=== PATIENT | female | born 1950 | race Caucasian/White ===

== ENCOUNTER 2018-12-16 19:07 | Emergency (ER) | payer MEDICARE, BC ==
[2018-12-16 19:22] VITALS: BP 141/66; PULSE 94
--- NOTE | 2018-12-16 19:53 | EDM.PDOC ---
ED HPI GENERAL MEDICAL PROBLEM - General Chief Complaint: Headache Stated Complaint: PAIN BEHIND RIGHT EAR Time Seen by Provider: 12/16/18 19:53 - History of Present Illness INITIAL COMMENTS - FREE TEXT/NARRATIVE: 68-year-old female presents emergency room with pain behind her right ear. Patient has had multiple episodes of pain just like this over the last 30 years or so it'll go years without bothering her that it comes back it's a sharp stabbing pain behind her right ear. She's been told in the past she has a irritated nerve ending. Patient denies any fevers or chills no nausea no vomiting. The patient does not have a headache she just has this brief stabbing pain. The pain is at the insertion of the neck muscles into the base of the skull. Right Head Pain Score (Numeric/FACES): 10 - Related Data Allergies Allergy/AdvReac Type Severity Reaction Status Date / Time erythromycin base AdvReac Nausea and Verified 12/16/18 19:22 Vomiting Home Meds: Home Meds Budesonide/Formoterol [Symbicort 160-4.5 MCG] 2 puff INH BID 06/07/14 [History] Estrogens, Conjugated [Premarin] 0.625 mg PO DAILY 06/07/14 [History] Montelukast Sodium [Singulair] 10 mg PO DAILY 06/07/14 [History] Triamterene/Hydrochlorothiazid [Triamterene-HCTZ 37.5-25 MG] 1 each PO DAILY 05/23 [History] Albuterol [Ventolin HFA] 2 puff IH Q3H 08/13/14 [History] Aspirin 81 mg PO DAILY 12/16/18 [History] Fexofenadine/Pseudoephedrine [Renay-D 12 Hour Tablet] 1 each PO DAILY [History] Hydrocodone/Acetaminophen [[place] 5-325 Tablet] 1 each PO Q6H PRN #8 tablet 12/16 [Rx] Losartan [Cozaar] 25 mg PO DAILY 12/16/18 [History] Tiotropium [place] [Spiriva Respimat] 2.5 gm IH DAILY 12/16/18 [History] Past Medical History - Past Health History Medical/Surgical History: Denies Medical/Surgical History HEENT History: Reports: Impaired Vision Cardiovascular History: Reports: Hypertension Respiratory History: Reports: COPD [employer] History: Reports: Musculoskeletal History: Reports: None Neurological History: Reports: None Psychiatric History: Reports: None Endocrine/Metabolic History: Reports: None Hematologic History: Reports: None Immunologic History: Reports: None Oncologic (Cancer) History: Reports: None Dermatologic History: Reports: None - Infectious Disease History Infectious Disease History: Reports: None - Past Surgical History Head Surgeries/Procedures: Reports: None GI Surgical History: Reports: Cholecystectomy Other GI Surgeries/Procedures: Colon Surgery Female Surgical History: Reports: Hysterectomy, Tubal Ligation Social & Family History - Tobacco Use Smoking Status *Q: Never Smoker - Caffeine Use Caffeine Use: Reports: None - Recreational Drug Use Recreational Drug Use: No ED ROS GENERAL - Review of Systems Review Of Systems: See Below Constitutional: Reports: No Symptoms HEENT: Reports: No Symptoms Respiratory: Reports: No Symptoms Cardiovascular: Reports: No Symptoms GI/Abdominal: Reports: No Symptoms : Reports: No Symptoms Musculoskeletal: Reports: No Symptoms. Denies: Neck Pain Skin: Reports: No Symptoms Neurological: Denies: Headache (No headache just this pain over this pin-sized area at the insertion of the muscles at the base the skull) - Physical Exam Exam: See Below Exam Limited By: No Limitations General Appearance: Alert, No Apparent Distress Eye Exam: Bilateral Eye: EOMI, Normal Inspection, PERRL Ears: Normal External Exam, Normal Canal, Hearing Grossly Normal, Normal TMs Nose: Normal Inspection, Normal Mucosa, No Blood Throat/Mouth: Normal Inspection, Normal Lips, Normal Teeth, Normal Gums, Normal Oropharynx, Normal Voice, No Airway Compromise Head Exam: Atraumatic, Normocephalic Neck: Normal Inspection, Supple, Non-Tender, Full Range of Motion, Other (At the insertion of the paraspinous muscles in the base the skull only on the right side she has 1 pinpoint area that triggers her pain this is 3 cm lateral to midline right at the edge of the palpable skull. When you touch it she flinches.). No: Lymphadenopathy (L), Lymphadenopathy (R) Respiratory/Chest: No Respiratory Distress, Lungs Clear, Normal Breath Sounds Cardiovascular: Normal Peripheral Pulses, Regular Rate, Rhythm, No Edema Course - Vital Signs Last Recorded V/S: Last Vital Signs Temp 36.4 C 12/16/18 19:20 Pulse 94 09/10/19 19:20 Resp 18 12/16/18 19:20 BP 141/66 H 12/16/18 19:20 Pulse Ox 94 L 12/16/18 19:20 - Re-Assessments/Exams Free Text/Narrative Re-Assessment/Exam: 12/16/18 20:10 Consider trigger point injections to the area but no should the patient would hold still long enough for this. We'll try a few pain pills so she can get some rest. Departure - Departure Time of Disposition: 20:11 Disposition: Home, Self-Care 01 Clinical Impression: Neuroma - Discharge Information Prescriptions: Hydrocodone/Acetaminophen [[place] 5-325 Tablet] 1 each PO Q6H PRN #8 tablet PRN Reason: Pain Referrals: Calista Zamudio MD [Primary Care Provider] - Forms: ED Department Discharge Additional Instructions: Return to the emergency room with any questions problems or worsening symptoms. Follow-up with your regular provider early next week if needed. Take the medications as directed
== END 2018-12-16 20:20 | disposition home or self-care (01) ==
LOC: JD.ED 19:07
DX: D36.10 Benign neoplasm of peripheral nerves and autonomic nervous system, unspecified (principal); I10 Essential (primary) hypertension; J44.9 Chronic obstructive pulmonary disease, unspecified; Z88.1 Allergy status to other antibiotic agents; Z79.82 Long term (current) use of aspirin; Z79.899 Other long term (current) drug therapy
CPT/HCPCS: 99283

== ENCOUNTER 2022-08-06 20:01 | Emergency (ER) | payer BC, MEDICARE, OTHER ==
[2022-08-06] MEDS ORDERED: HYDROmorphone 1 MG/ML Syringe IM ONE (21:33)
[2022-08-06] MEDS ORDERED: Albuterol/Ipratropium 3.0-0.5 MG/3 ML Neb Soln NEB ONE (22:25)
[2022-08-07 00:04] VITALS: BP 155/89; PULSE 78
== END 2022-08-06 23:45 | disposition home or self-care (01) ==
LOC: JD.ED 20:01
DX: R51.9 Headache, unspecified (principal); I10 Essential (primary) hypertension; J44.9 Chronic obstructive pulmonary disease, unspecified; Z88.1 Allergy status to other antibiotic agents; Z79.82 Long term (current) use of aspirin; Z79.899 Other long term (current) drug therapy
CPT/HCPCS: 70450; 94640; 96372; 99284; J1170; 99283; J7620-GY

== ENCOUNTER 2023-02-17 01:14 | Emergency (ER) | payer MEDICARE, OTHER ==
[2023-02-17] MEDS ORDERED: Albuterol/Ipratropium 3.0-0.5 MG/3 ML Neb Soln ONE (01:20)
[2023-02-17] MEDS ORDERED: methylPREDNISolone Sodium Succinate 125 MG/2 ML SDV IVPUSH ONE (01:26)
[2023-02-17] MEDS ORDERED: Albuterol/Ipratropium 3.0-0.5 MG/3 ML Neb Soln NEB ONE (01:26)
[2023-02-17] MEDS ORDERED: methylPREDNISolone Sodium Succinate 125 MG/2 ML SDV ONE (01:28)
[2023-02-17 01:45] LABS: BASOPHILS ABSOLUTE AUTO 0.1 K/mm3 (0.0-0.2); BASOPHILS PERCENT AUTO 0.2 % (0.0-1.0); EOSINOPHILS ABSOLUTE AUTO 0.6 K/mm3 (0.0-0.4); EOSINOPHILS PERCENT AUTO 2.3 % (0.0-6.0); HEMATOCRIT 39.3 % (37.0-47.0); HEMOGLOBIN 12.3 gm/dl (12.0-16.0); IMMATURE GRAN ABSOLUTE AUTO 0.27 K/mm3 (0.00-0.05); LYMPHOCYTES ABSOLUTE AUTO 3.6 K/mm3 (1.0-4.8); LYMPHOCYTES PERCENT AUTO 12.7 % (24.0-44.0); MEAN CORPUSCULAR HEMOGLOBIN 19.9 pg (28.0-32.0); MEAN CORPUSCULAR HGB CONC 31.3 g/dl (32.0-36.0); MEAN CORPUSCULAR VOLUME 63.6 fl (83.0-99.0); MEAN PLATELET VOLUME 10.6 fl (9.4-12.3); MONOCYTES ABSOLUTE AUTO 1.5 K/mm3 (0.0-0.8); MONOCYTES PERCENT AUTO 5.2 % (0.0-8.0); NEUTROPHILS ABSOLUTE AUTO 22.4 K/mm3 (1.8-7.7); NEUTROPHILS PERCENT AUTO 78.6 % (41.0-71.0); NRBC ABSOLUTE 0.02 (0.00-0.02); NRBC PERCENT 0.1 % (0.0-0.2); PLATELET COUNT,PLT 504 K/mm3 (150-400); RED BLOOD CELL COUNT 6.18 M/mm3 (4.10-5.30)
[2023-02-17] MEDS ORDERED: Albuterol 0.083% 2.5 MG/3 ML Neb Soln ONE (01:46)
[2023-02-17] MEDS ORDERED: Albuterol 0.5% 2.5 MG/0.5 ML Neb Soln NEB PRN (01:56)
[2023-02-17 02:04] LABS: INR 0.96; PROTHROMBIN TIME 10.3 SECONDS (9.7-12.0)
[2023-02-17] MEDS ORDERED: Succinylcholine 200 MG/10 ML MDV IVPUSH ONE (02:09)
[2023-02-17 02:10] LABS: BASE EXCESS ARTERIAL -3.2 (-2-2.0); BICARBONATE,ARTERIAL 30.1 meq/L (22.0-26.0); O2 SATURATION ARTERIAL 96.8 % (96.0-97.0); PCO2 ARTERIAL 107.8 mmHg (35.0-45.0)
[2023-02-17] MEDS ORDERED: propofoL 100 ML ONE (02:11)
[2023-02-17 02:14] LABS: ALBUMIN 3.7 g/dl (3.4-5.0); ANION GAP 14.8 (5-15); BILIRUBIN TOTAL 1.5 mg/dL (0.2-1.0); CALCIUM 8.6 mg/dL (8.5-10.1); CREATININE 0.8 mg/dL (0.55-1.02); EST CRCL DRUG DOSING (CG) 51.03 mL/min; POTASSIUM,K 3.8 mEq/L (3.5-5.1); PROTEIN TOTAL,TP 7.4 g/dl (6.4-8.2)
[2023-02-17 02:21] LABS: LACTIC ACID 0.7 mmol/L (0.4-2.0)
[2023-02-17 02:22] LABS: SLIDE REVIEW ABNORMAL SMEAR
[2023-02-17] MEDS: propofoL 100 ML IV SCH ×2 (02:27→06:48)
[2023-02-17] MEDS ORDERED: cefTRIAXone 2 GM in Sodium Chloride 0.9% 100 ML IV ONE (02:42)
[2023-02-17 03:09] LABS: APPEARANCE,URINE SLT CLOUDY (Clear); BILIRUBIN,URINE 1+ (Negative); COLOR,URINE DARK YELLOW (Yellow); GLUCOSE,URINE NEGATIVE (Negative); KETONES,URINE 1+ (Negative); LEUKOCYTE ESTERASE,URINE NEGATIVE (Negative); NITRITE,URINE NEGATIVE (Negative); OCCULT BLOOD,URINE 1+ (Negative); PH,URINE 5.5 (5.0-8.0); PROTEIN,URINE 3+ (Negative); UROBILINOGEN,URINE 0.2 (0.2-1.0)
[2023-02-17 03:22] LABS: RBC,URINE 0-5 /hpf (0-5); SQUAMOUS EPITHELIAL CELLS,UR 0-5 /hpf (0-5); WBC,URINE 0-5 /hpf (0-5)
[2023-02-17 03:23] LABS: BACTERIA,URINE MODERATE /hpf (FEW); HYALINE CASTS,URINE 0-5 /lpf (0-5); MUCUS,URINE RARE /hpf (FEW)
[2023-02-17] MEDS ORDERED: Heparin Sodium 5,000 Units/ML Vial IVPUSH ONE (03:27)
[2023-02-17] MEDS ORDERED: Heparin Sodium/D5W 25,000 UNITS/500 ML BAG IV SCH (03:30)
[2023-02-17 03:47] LABS: BASE EXCESS ARTERIAL -1.4 (-2-2.0); O2 SATURATION ARTERIAL 92.9 % (96.0-97.0); PCO2 ARTERIAL 59.3 mmHg (35.0-45.0)
[2023-02-17] MEDS ORDERED: fentaNYL 100 MCG/2 ML SDV IVPUSH ONE ×2 (04:07→06:47)
[2023-02-17] MEDS ORDERED: Ketamine 200 MG/20 ML MDV IVPUSH ONE (04:09)
[2023-02-17 04:13] LABS: INFLUENZA A NAA NEGATIVE (NEGATIVE); RESPIRATORY SYNCYTIAL VIR NAA NEGATIVE (NEGATIVE)
[2023-02-17 04:28] LABS: CORONAVIRUS COVID-19 NAA POSITIVE (NEGATIVE)
[2023-02-17] MEDS ORDERED: Norepinephrine 4 MG in Dextrose 5% in Water 246 ML IV SCH ×2 (04:45)
[2023-02-17 04:55] LABS: BASE EXCESS ARTERIAL -0.1 (-2-2.0); O2 SATURATION ARTERIAL 95.2 % (96.0-97.0); PCO2 ARTERIAL 51.6 mmHg (35.0-45.0)
[2023-02-17] MEDS ORDERED: Sodium Chloride 0.9% 500 ML IV ONE (05:27)
[2023-02-17] MEDS ORDERED: Sodium Chloride 0.9% 1,000 ML IV SCH (05:30)
[2023-02-17 06:29] VITALS: BP 107/78; PULSE 87
== END 2023-02-17 07:19 ==
LOC: JD.ED 01:14
DX: I25.9 Chronic ischemic heart disease, unspecified (principal); J96.90 Respiratory failure, unspecified, unspecified whether with hypoxia or hypercapnia; U07.1 COVID-19; I10 Essential (primary) hypertension; J44.9 Chronic obstructive pulmonary disease, unspecified; Z79.899 Other long term (current) drug therapy; Z88.1 Allergy status to other antibiotic agents; Z79.82 Long term (current) use of aspirin
CPT/HCPCS: 0241U; 31500; 36415; 36600; 43752; 51702; 71045; 80053; 81001; 82803; 83605; 83880; 84484; 85025; 85610; 85730; 87040; 93005; 94640; 96365; 96366; 96367; 96368; 96375; 96376; 99285; J0330; J0696; J1644; J2704; J2930; J3010; J3490; J7030; J7060; 93010; J7620-GY

== ENCOUNTER 2023-05-30 10:11 | Day surgery (SDC) | payer MEDICARE, OTHER ==
[2023-05-30] MEDS: Polymyxin B/Trimethoprim 10 ML Bottle EYERT SCH (11:05)
[2023-05-30] MEDS: Brimonidine 0.2% Ophth Soln 5 ML Bottle EYERT SCH (11:10)
[2023-05-30] MEDS: Phenylephrine 2.5% Ophth Soln 2 ML Bot EYERT SCH (11:15)
[2023-05-30] MEDS: Tropicamide 1% Ophth Soln 3 ML Bottle EYERT SCH (11:20)
[2023-05-30] MEDS: Proparacaine 0.5% Ophth Soln 15 ML Bottle EYEBOTH SCH (12:03)
[2023-05-30] MEDS: Lidocaine 1% PF 2 ML SDV INJECT SCH (12:22)
[2023-05-30] MEDS: Pilocarpine 4% Ophth Soln 15 ML Bot EYERT SCH (12:22)
[2023-05-30] MEDS: Cefuroxime 10 MG/ML SYRINGE EYERT SCH (12:34)
[2023-05-30 12:49] VITALS: BP 138/73; PULSE 60
== END 2023-05-30 12:43 | disposition home or self-care (01) ==
LOC: JD.SDS 10:11
PROVIDERS: ATTEND Ophthalmology
DX: H25.813 Combined forms of age-related cataract, bilateral (principal); H16.103 Unspecified superficial keratitis, bilateral; H16.223 Keratoconjunctivitis sicca, not specified as Sjogren's, bilateral; H53.022 Refractive amblyopia, left eye; H02.831 Dermatochalasis of right upper eyelid; H02.834 Dermatochalasis of left upper eyelid; I10 Essential (primary) hypertension; J44.9 Chronic obstructive pulmonary disease, unspecified; E78.2 Mixed hyperlipidemia; Z79.899 Other long term (current) drug therapy; Z91.040 Latex allergy status
CPT/HCPCS: A9270-GY; J0697; J3490

== ENCOUNTER 2023-06-27 11:06 | Day surgery (SDC) | payer MEDICARE, OTHER ==
[2023-06-27] MEDS: Polymyxin B/Trimethoprim 10 ML Bottle EYELF SCH (11:47)
[2023-06-27] MEDS: Brimonidine 0.2% Ophth Soln 5 ML Bottle EYELF SCH (11:51)
[2023-06-27] MEDS: Phenylephrine 2.5% Ophth Soln 2 ML Bot EYELF SCH (12:06)
[2023-06-27] MEDS: Tropicamide 1% Ophth Soln 3 ML Bottle EYELF SCH (12:10)
[2023-06-27] MEDS: Tetracaine HCl/PF 0.5% 4 ML Bottle EYEBOTH SCH (13:07)
[2023-06-27] MEDS: Lidocaine 1% PF 2 ML SDV INJECT SCH (13:47)
[2023-06-27] MEDS: Cefuroxime 10 MG/ML SYRINGE EYELF SCH (13:59)
[2023-06-27] MEDS: Pilocarpine 4% Ophth Soln 15 ML Bot EYELF SCH (14:00)
[2023-06-27 14:14] VITALS: BP 134/80; PULSE 78
== END 2023-06-27 14:10 | disposition home or self-care (01) ==
LOC: JD.SDS 11:06
PROVIDERS: ATTEND Ophthalmology
DX: H25.812 Combined forms of age-related cataract, left eye (principal); H53.022 Refractive amblyopia, left eye; H11.823 Conjunctivochalasis, bilateral; H02.831 Dermatochalasis of right upper eyelid; H02.834 Dermatochalasis of left upper eyelid; I10 Essential (primary) hypertension; J44.9 Chronic obstructive pulmonary disease, unspecified; E78.2 Mixed hyperlipidemia; Z96.1 Presence of intraocular lens; Z79.899 Other long term (current) drug therapy
CPT/HCPCS: A9270-GY; J0697; J3490

== ENCOUNTER 2023-12-04 10:04 | Inpatient (IN) | payer MEDICARE, OTHER ==
[2023-12-04] MEDS: Sodium Chloride 0.9% 45 ML IV SCH (10:31)
[2023-12-04] MEDS: Iopamidol 755 Mg/ML 100 ML Bottle IVPUSH ONE (10:31)
[2023-12-04] MEDS: Sodium Chloride 0.9% 10 ML Syringe FLUSH PRN ×2 (10:31→12:42)
[2023-12-04] MEDS: Albuterol/Ipratropium 3.0-0.5 MG/3 ML Neb Soln NEB ONE (10:55)
[2023-12-04] MEDS: methylPREDNISolone Sodium Succinate 125 MG/2 ML SDV IVPUSH ONE (10:57)
[2023-12-04] MEDS: HYDROmorphone 0.5 MG/0.5 ML Syringe IVPUSH ONE ×2 (10:57→11:41)
[2023-12-04 11:45] LABS: BASOPHILS ABSOLUTE AUTO 0.1 K/mm3 (0.0-0.2); BASOPHILS PERCENT AUTO 0.2 % (0.0-1.0); HEMATOCRIT 37.8 % (37.0-47.0); HEMOGLOBIN 12.1 gm/dl (12.0-16.0); IMMATURE GRAN ABSOLUTE AUTO 0.46 K/mm3 (0.00-0.05); IMMATURE GRAN PERCENT AUTO 1.4 % (0.0-0.4); LYMPHOCYTES ABSOLUTE AUTO 1.8 K/mm3 (1.0-4.8); LYMPHOCYTES PERCENT AUTO 5.6 % (24.0-44.0); MEAN CORPUSCULAR HEMOGLOBIN 19.9 pg (28.0-32.0); MEAN CORPUSCULAR VOLUME 62.3 fl (83.0-99.0); MONOCYTES ABSOLUTE AUTO 1.8 K/mm3 (0.0-0.8); MONOCYTES PERCENT AUTO 5.7 % (0.0-8.0); NEUTROPHILS ABSOLUTE AUTO 27.6 K/mm3 (1.8-7.7); NEUTROPHILS PERCENT AUTO 87.1 % (41.0-71.0); PLATELET COUNT,PLT 352 K/mm3 (150-400); RED BLOOD CELL COUNT 6.07 M/mm3 (4.10-5.30); WHITE BLOOD CELL COUNT,WBC 31.75 K/mm3 (3.9-11.3)
[2023-12-04 11:56] LABS: INR 1.24
[2023-12-04 11:57] LABS: PTT,PARTIAL THROMBOPLSTIN TIME 27.4 SECONDS (21.7-31.4)
[2023-12-04 12:25] LABS: A/G RATIO 0.7 (1-2); ALBUMIN 2.6 g/dl (3.4-5.0); ANION GAP 16.7 (5-15); BILIRUBIN TOTAL 1.9 mg/dL (0.2-1.0); CALCIUM 8.5 mg/dL (8.5-10.1); EST CRCL DRUG DOSING (CG) 45.5 mL/min; POTASSIUM,K 3.7 mEq/L (3.5-5.1); PROTEIN TOTAL,TP 6.5 g/dl (6.4-8.2)
[2023-12-04] MEDS: cefTRIAXone 2 GM in Sodium Chloride 0.9% 100 ML IV ONE (12:41)
[2023-12-04 13:00] LABS: CORONAVIRUS COVID-19 NAA NEGATIVE (NEGATIVE); INFLUENZA A NAA NEGATIVE (NEGATIVE); RESPIRATORY SYNCYTIAL VIR NAA NEGATIVE (NEGATIVE)
[2023-12-04 13:04] LABS: SLIDE REVIEW ABNORMAL SMEAR
[2023-12-04 13:10] LABS: LACTIC ACID 0.9 mmol/L (0.4-2.0)
[2023-12-04 13:19] LABS: APPEARANCE,URINE CLEAR (Clear); BILIRUBIN,URINE 1+ (Negative); COLOR,URINE DARK YELLOW (Yellow); GLUCOSE,URINE NEGATIVE (Negative); KETONES,URINE NEGATIVE (Negative); LEUKOCYTE ESTERASE,URINE NEGATIVE (Negative); NITRITE,URINE NEGATIVE (Negative); OCCULT BLOOD,URINE NEGATIVE (Negative); PH,URINE 5.5 (5.0-8.0); PROTEIN,URINE 1+ (Negative)
[2023-12-04 13:53] LABS: BACTERIA,URINE FEW /hpf (FEW); MUCUS,URINE FEW /hpf (FEW); RBC,URINE 0-5 /hpf (0-5); SQUAMOUS EPITHELIAL CELLS,UR 0-5 /hpf (0-5); WBC CASTS,URINE 0-5 /lpf (0-5); WBC,URINE 0-5 /hpf (0-5)
[2023-12-04 13:54] LABS: FINE GRANULAR CASTS,URINE 0-5 /lpf (0-5); HYALINE CASTS,URINE 0-5 /lpf (0-5)
[2023-12-04] MEDS: oxyCODONE 5 MG Tab PO ONE (14:10)
[2023-12-04] MEDS ORDERED: Ondansetron 4 MG/2 ML SDV IV PRN (17:00)
[2023-12-04] MEDS ORDERED: Morphine 2 MG/ML SYRINGE IVPUSH PRN (17:00)
[2023-12-04] MEDS ORDERED: Sennosides/Docusate Sodium 50-8.6 MG Tab PO PRN (17:00)
[2023-12-04] MEDS ORDERED: Melatonin 3 MG Tab PO PRN (17:00)
[2023-12-04] MEDS: Potassium Chloride 20 MEQ Tab.ER PO ONE (17:29)
[2023-12-04] MEDS ORDERED: Albuterol 0.083% 2.5 MG/3 ML Neb Soln INH PRN (17:30)
[2023-12-04] MEDS: Lactated Ringers 500 ML IV ONE (17:30)
[2023-12-04] MEDS ORDERED: Albuterol 6.7 GM Inhaler INH SCH (17:30)
[2023-12-04] MEDS ORDERED: Non-Formulary Medication 1 Each (Alendronate [Fosamax] 70 MG/75 ML Bottle) PO SCH (17:30)
[2023-12-04] MEDS ORDERED: Non-Formulary Medication 1 Each (Fluticasone/Umeclidin/Vilanter [Trelegy Ellipta 200-62.5- INH SCH (17:30)
[2023-12-04] MEDS ORDERED: Non-Formulary Medication 1 Each (Olopatadine 2.5 ML Bottle) EYEBOTH SCH (17:45)
[2023-12-04] MEDS: Rosuvastatin 10 MG Tab PO SCH (17:48)
[2023-12-04] MEDS: Cholecalciferol (Vitamin D3) 25 MCG Tab PO SCH (17:49)
[2023-12-04] MEDS: Calcium Carbonate 600 MG Tab PO SCH (17:49)
[2023-12-04] MEDS: Losartan 50 MG Tab PO SCH (17:51)
[2023-12-04] MEDS: Furosemide 20 MG Tab PO SCH (17:53)
[2023-12-04] MEDS: Aspirin 81 MG Tab.EC PO SCH (17:53)
[2023-12-04 18:03] LABS: FOLIC ACID 15.5 ng/mL (8.6-58.9)
[2023-12-04 18:26] LABS: TSH 1.445 uIU/mL (0.358-3.74)
[2023-12-04] MEDS: Albuterol/Ipratropium 3.0-0.5 MG/3 ML Neb Soln NEB SCH (18:28)
[2023-12-04 18:40] LABS: IRON,FE 10 ug/dL (50-170); PERCENT FE SATURATION 6 % (20-55); TRANSFERRIN 124 mg/dL (202-364)
[2023-12-04 18:41] LABS: TOTAL IRON BINDING CAPACITY 155 ug/dL (100-400)
[2023-12-04] MEDS: Doxycycline 100 MG in Sodium Chloride 0.9% 100 ML IV SCH (21:06)
[2023-12-04] MEDS: rOPINIRole 0.25 MG Tab PO SCH (21:06)
[2023-12-05 07:52] LABS: BASOPHILS ABSOLUTE AUTO 0.1 K/mm3 (0.0-0.2); BASOPHILS PERCENT AUTO 0.4 % (0.0-1.0); EOSINOPHILS PERCENT AUTO 0.1 % (0.0-6.0); HEMATOCRIT 32.7 % (37.0-47.0); IMMATURE GRAN ABSOLUTE AUTO 1.41 K/mm3 (0.00-0.05); LYMPHOCYTES ABSOLUTE AUTO 0.9 K/mm3 (1.0-4.8); LYMPHOCYTES PERCENT AUTO 2.6 % (24.0-44.0); MEAN CORPUSCULAR HEMOGLOBIN 19.5 pg (28.0-32.0); MEAN CORPUSCULAR HGB CONC 31.8 g/dl (32.0-36.0); MEAN CORPUSCULAR VOLUME 61.5 fl (83.0-99.0); MEAN PLATELET VOLUME 10.3 fl (9.4-12.3); MONOCYTES ABSOLUTE AUTO 1.4 K/mm3 (0.0-0.8); MONOCYTES PERCENT AUTO 3.9 % (0.0-8.0); NEUTROPHILS ABSOLUTE AUTO 31.1 K/mm3 (1.8-7.7); PLATELET COUNT,PLT 401 K/mm3 (150-400); RED BLOOD CELL COUNT 5.32 M/mm3 (4.10-5.30); WHITE BLOOD CELL COUNT,WBC 34.96 K/mm3 (3.9-11.3)
[2023-12-05 07:56] LABS: HEMOGLOBIN 10.4 gm/dl (12.0-16.0)
[2023-12-05 08:21] LABS: ANION GAP 13.2 (5-15); BLOOD UREA NITROGEN,BUN 24 mg/dL (7-18); CARBON DIOXIDE,CO2 26 mEq/L (21-32); CHLORIDE,CL 99 mEq/L (98-107); CREATININE 1.1 mg/dL (0.55-1.02); GLUCOSE RANDOM 186 mg/dL (70-99); POTASSIUM,K 4.2 mEq/L (3.5-5.1); SODIUM,NA 134 mEq/L (136-145)
[2023-12-05 08:22] LABS: A/G RATIO 0.6 (1-2); ALANINE AMINOTRANSFERASE,ALT 29 U/L (14-59); ALBUMIN 2.4 g/dl (3.4-5.0); ALKALINE PHOSPHATASE 105 U/L (46-116); ASPARTATE AMNIOTRANSFERASE,AST 21 U/L (15-37); BILIRUBIN TOTAL 0.8 mg/dL (0.2-1.0); BUN/CREATININE RATIO 21.8 (14-18); CALCIUM 8.8 mg/dL (8.5-10.1); EST CRCL DRUG DOSING (CG) 41.37 mL/min; ESTIMATED GFR 52 mL/min (>60); MAGNESIUM 1.9 mg/dL (1.8-2.4); PHOSPHORUS 1.9 mg/dL (2.6-4.7); PROTEIN TOTAL,TP 6.6 g/dl (6.4-8.2)
[2023-12-05 08:23] LABS: C-REACTIVE PROTEIN > 25.00 mg/dL (<0.30)
[2023-12-05] MEDS: Enoxaparin 40 MG/0.4 ML Syringe SUBCUT SCH (08:41)
[2023-12-05 09:49] LABS: SLIDE REVIEW ABNORMAL SMEAR
[2023-12-05] MEDS: Non-Formulary Medication 1 Each (Ubidecarenone [Coenzyme Q10] 10 MG Capsule) PO SCH (10:58)
[2023-12-05] MEDS: Sodium Ferric Gluconate Cmplex 250 MG in Sodium Chloride 0.9% 100 ML IV SCH (11:47)
[2023-12-05] MEDS ORDERED: Sodium Phosphate 30 MMOLE in Sodium Chloride 0.9% 250 ML IV ONE (12:00)
[2023-12-05] MEDS: Sodium Phosphate 30 MMOLE in Sodium Chloride 0.9% 250 ML IV ONE (14:15)
[2023-12-05] MEDS: cefTRIAXone 1 GM in Sodium Chloride 0.9% 100 ML IV SCH (17:22)
[2023-12-06] MEDS: Losartan 25 MG Tab PO SCH (09:58)
[2023-12-06] MEDS: Doxycycline Monohydrate 100 MG Cap PO SCH (09:58)
[2023-12-06 10:37] LABS: BASOPHILS PERCENT AUTO 0.1 % (0.0-1.0); EOSINOPHILS PERCENT AUTO 0.1 % (0.0-6.0); HEMATOCRIT 29.3 % (37.0-47.0); HEMOGLOBIN 9.4 gm/dl (12.0-16.0); IMMATURE GRAN ABSOLUTE AUTO 0.55 K/mm3 (0.00-0.05); IMMATURE GRAN PERCENT AUTO 2.8 % (0.0-0.4); LYMPHOCYTES PERCENT AUTO 5.3 % (24.0-44.0); MEAN CORPUSCULAR HEMOGLOBIN 19.8 pg (28.0-32.0); MEAN CORPUSCULAR HGB CONC 32.1 g/dl (32.0-36.0); MEAN CORPUSCULAR VOLUME 61.7 fl (83.0-99.0); MEAN PLATELET VOLUME 9.6 fl (9.4-12.3); MONOCYTES PERCENT AUTO 4.9 % (0.0-8.0); NEUTROPHILS ABSOLUTE AUTO 16.9 K/mm3 (1.8-7.7); NEUTROPHILS PERCENT AUTO 86.8 % (41.0-71.0); PLATELET COUNT,PLT 416 K/mm3 (150-400); RED BLOOD CELL COUNT 4.75 M/mm3 (4.10-5.30); WHITE BLOOD CELL COUNT,WBC 19.45 K/mm3 (3.9-11.3)
[2023-12-06 10:55] LABS: ANION GAP 11.5 (5-15); BUN/CREATININE RATIO 22.2 (14-18); C-REACTIVE PROTEIN 18.28 mg/dL (<0.30); CALCIUM 8.9 mg/dL (8.5-10.1); CREATININE 0.9 mg/dL (0.55-1.02); EST CRCL DRUG DOSING (CG) 50.56 mL/min; MAGNESIUM 1.7 mg/dL (1.8-2.4); POTASSIUM,K 3.5 mEq/L (3.5-5.1); SLIDE REVIEW ABNORMAL SMEAR
[2023-12-06] MEDS: Acetaminophen 325 MG Tab PO PRN (14:53)
[2023-12-06] MEDS: Phosphorus #1 250 MG Tab PO ONE (18:29)
[2023-12-06] MEDS: Magnesium Sulfate/Water 4 GM in Premix Bag 1 BAG IV ONE (18:29)
[2023-12-06] MEDS: Potassium Bicarbonate/Cit Ac 20 MEQ Effervescent Tab PO ONE (18:29)
[2023-12-06] MEDS: oxyCODONE 5 MG Tab PO PRN (21:36)
[2023-12-07 05:34] LABS: BASOPHILS PERCENT AUTO 0.2 % (0.0-1.0); EOSINOPHILS ABSOLUTE AUTO 0.2 K/mm3 (0.0-0.4); EOSINOPHILS PERCENT AUTO 1.4 % (0.0-6.0); HEMATOCRIT 28.2 % (37.0-47.0); HEMOGLOBIN 9.2 gm/dl (12.0-16.0); IMMATURE GRAN ABSOLUTE AUTO 0.25 K/mm3 (0.00-0.05); IMMATURE GRAN PERCENT AUTO 2.4 % (0.0-0.4); LYMPHOCYTES ABSOLUTE AUTO 1.8 K/mm3 (1.0-4.8); LYMPHOCYTES PERCENT AUTO 17.1 % (24.0-44.0); MEAN CORPUSCULAR HGB CONC 32.6 g/dl (32.0-36.0); MEAN CORPUSCULAR VOLUME 61.3 fl (83.0-99.0); MONOCYTES ABSOLUTE AUTO 0.8 K/mm3 (0.0-0.8); MONOCYTES PERCENT AUTO 7.3 % (0.0-8.0); NEUTROPHILS ABSOLUTE AUTO 7.6 K/mm3 (1.8-7.7); NEUTROPHILS PERCENT AUTO 71.6 % (41.0-71.0); PLATELET COUNT,PLT 445 K/mm3 (150-400); WHITE BLOOD CELL COUNT,WBC 10.61 K/mm3 (3.9-11.3)
[2023-12-07 05:57] LABS: ANION GAP 9.9 (5-15); BUN/CREATININE RATIO 18.9 (14-18); CALCIUM 8.5 mg/dL (8.5-10.1); CREATININE 0.9 mg/dL (0.55-1.02); EST CRCL DRUG DOSING (CG) 50.56 mL/min; MAGNESIUM 2.3 mg/dL (1.8-2.4); PHOSPHORUS 3.7 mg/dL (2.6-4.7); POTASSIUM,K 3.9 mEq/L (3.5-5.1)
[2023-12-07 06:31] LABS: SLIDE REVIEW ABNORMAL SMEAR
[2023-12-07 13:12] VITALS: BP 160/74; PULSE 84
[2023-12-07] MEDS: Potassium Bicarbonate/Cit Ac 10 MEQ Effervescent Tab PO ONE (13:54)
[2023-12-07] MEDS: Losartan 25 MG Tab PO ONE (13:54)
[2023-12-08] MEDS ORDERED: Losartan 50 MG Tab PO SCH (09:00)
[2023-12-08 10:41] LABS: VITAMIN B1, WHOLE BLOOD 202 nmol/L (70-180)
[2023-12-12 04:47] LABS: MYELOPEROXIDASE AB 1 AU/mL (0-19); SERINE PROTEINASE 3, IGG 0 AU/mL (0-19)
[2023-12-13 12:47] LABS: SEROTONIN 145 ng/mL (50-220)
== END 2023-12-07 16:18 | disposition home or self-care (01) | DRG 193 ==
LOC: JD.ED 10:04 → JD.MS 13:39
PROVIDERS: ADMIT Student in an Organized Health Care Education/Training Program; ATTEND Student in an Organized Health Care Education/Training Program
DX: J18.9 Pneumonia, unspecified organism (principal); J96.01 Acute respiratory failure with hypoxia; J44.0 Chronic obstructive pulmonary disease with (acute) lower respiratory infection; J44.9 Chronic obstructive pulmonary disease, unspecified; E46 Unspecified protein-calorie malnutrition; H54.7 Unspecified visual loss; E78.00 Pure hypercholesterolemia, unspecified; I10 Essential (primary) hypertension; Z88.1 Allergy status to other antibiotic agents; G47.30 Sleep apnea, unspecified; R79.89 Other specified abnormal findings of blood chemistry; D72.829 Elevated white blood cell count, unspecified; D56.9 Thalassemia, unspecified; E80.6 Other disorders of bilirubin metabolism; R74.01 Elevation of levels of liver transaminase levels; W19.XXXA Unspecified fall, initial encounter; Z78.0 Asymptomatic menopausal state; Z91.040 Latex allergy status; Z98.890 Other specified postprocedural states; Z90.710 Acquired absence of both cervix and uterus; Z88.2 Allergy status to sulfonamides; Z79.82 Long term (current) use of aspirin; Z79.51 Long term (current) use of inhaled steroids; Z79.899 Other long term (current) drug therapy; Z86.16 Personal history of COVID-19; Z90.49 Acquired absence of other specified parts of digestive tract; Z98.51 Tubal ligation status; I25.2 Old myocardial infarction; Z68.23 Body mass index [BMI] 23.0-23.9, adult
CPT/HCPCS: 0241U; 36415; 70450; 70496; 70498; 71045; 80048; 80053; 80179; 81001; 82140; 82248; 82607; 82746; 83516; 83540; 83605; 83735; 83880; 84100; 84260; 84425; 84443; 84466; 84484; 85025; 85610; 85652; 85730; 86036; 86140; 86430; 87040; 87899; 93005; 93306; 94640; 94761; 96365; 96375; 96376; 97110; 97161; 99285; 93010; 99222; 99232; 99239; A9270-GY; C1758; J0696; J1170; J1650; J2916; J2919; J3475; J3490; J7050; J7120; J7620-GY; Q9967